=== PATIENT | male | born 1950 | race Two or more races ===

== ENCOUNTER 2023-04-23 08:24 | Inpatient (IN) | payer OTHER ==
[~2023-04-23] VITALS: Ht 157.5 cm; Wt 81.6 kg
[2023-04-23] MEDS ORDERED: RISPERDAL1 MG PO (08:52)
[2023-04-23] MEDS ORDERED: LEVOTHYROXINE25 MCG PO (08:52)
[2023-04-23] MEDS ORDERED: FLUOXETINE HCL60 MG PO (08:53)
[2023-04-23] MEDS ORDERED: LIPITOR40 M1 PO (08:53)
[2023-04-23] MEDS ORDERED: ATACAND16 MG PO (08:53)
[2023-04-23] MEDS ORDERED: RESTORIL30 M1 PO (08:54)
[2023-04-23] MEDS ORDERED: RESTORIL30 MG PO (08:54)
[2023-04-23] MEDS ORDERED: TOPROL XL25 M1 PO (08:54)
[2023-04-23] MEDS ORDERED: 0.9 % SODIUM CHLORIDE 1,000 ML IV SCH (09:15)
[2023-04-23] MEDS ORDERED: MORPHINE SULFATE 4 MG/ML VIAL IV PRN (09:15)
[2023-04-23 10:14] LABS: HEMATOCRIT 35.4 % (39.0-48.0); HEMOGLOBIN 11.5 g/dL (13-16.00); MEAN CELL VOLUME 80.8 fL (80.0-100.00); MEAN CORPUSCULAR HEMOGLOBIN 26.3 pg (27.00-32.0); MEAN CORPUSCULAR HGB CONC 32.6 g/dl (32.0-36.0); PLATELET COUNT 204 K/uL (150-450); RED BLOOD COUNT 4.38 M/uL (4.00-6.00)
[2023-04-23 10:32] LABS: INR 1.13; PARTIAL THROMBOPLASTIN TIME 26.8 SECONDS (22.0-34.0); PROTHROMBIN TIME 11.8 SECONDS (9.0-11.5)
[2023-04-23 10:44] LABS: ALBUMIN 3.7 gm/dL (3.4-5.0); BILIRUBIN TOTAL 0.51 mg/dL (0.3-1.2); CALCIUM 9.5 mg/dL (8.5-10.1); CREATININE SERUM 1.05 mg/dL (0.70-1.30); GFR 69.83; POTASSIUM 4.73 mEq/L (3.5-5.1); TOTAL PROTEIN 7.7 gm/dL (6.4-8.2)
[2023-04-23] MEDS ORDERED: FAMOTIDINE/PF 20 MG/2 ML VIAL IV SCH (12:12)
[2023-04-23] MEDS ORDERED: ENALAPRILAT DIHYDRATE 1.25 MG/ML VIAL IV PRN (12:15)
[2023-04-23] MEDS ORDERED: Cyanocobalamin/Mecobalamin 1 TAB.SL SL SCH (12:19)
[2023-04-23] MEDS ORDERED: SOD FERRIC GLUC COMPLX/SUCROSE 62.5 MG in 0.9 % SODIUM CHLORIDE 50 ML IV SCH (12:19)
[2023-04-23] MEDS ORDERED: POLYETHYLENE GLYCOL 3350 238 GM POWDER PO ONE (18:00)
[2023-04-23] MEDS ORDERED: BISACODYL 5 MG TABLET.EC PO SCH (21:00)
[2023-04-23] MEDS ORDERED: RISPERIDONE 1 MG TABLET PO SCH (21:00)
[2023-04-23] MEDS ORDERED: TEMAZEPAM 15 MG CAPSULE PO SCH (21:00)
[2023-04-24] MEDS ORDERED: LEVOTHYROXINE SODIUM 25 MCG TABLET PO SCH (06:00)
[2023-04-24 07:29] LABS: MEAN CELL VOLUME 80.1 fL (80.0-100.00); MEAN CORPUSCULAR HGB CONC 32.4 g/dl (32.0-36.0); PLATELET COUNT 198 K/uL (150-450); RED BLOOD COUNT 4.24 M/uL (4.00-6.00); RED CELL DISTRIBUTION WIDTH 21.1 % (11.5-14.5)
[2023-04-24 07:40] LABS: INR 1.14; PROTHROMBIN TIME 11.9 SECONDS (9.0-11.5)
[2023-04-24 07:48] LABS: ALBUMIN 3.6 gm/dL (3.4-5.0); BILIRUBIN TOTAL 0.7 mg/dL (0.3-1.2); CALCIUM 8.9 mg/dL (8.5-10.1); CREATININE SERUM 0.88 mg/dL (0.70-1.30); GFR 85.61; GLOBULINA 3.2 G/DL (2.4-3.5); MAGNESIUM 2.4 mg/dL (1.8-2.4); POTASSIUM 4.69 mEq/L (3.5-5.1); TOTAL PROTEIN 6.8 gm/dL (6.4-8.2); TSH 1.15 uIU/mL (0.358-3.74)
[2023-04-24] MEDS ORDERED: CANDESARTAN CILEXETIL 16 MG TABLET PO SCH (09:00)
[2023-04-24] MEDS ORDERED: METOPROLOL SUCCINATE 25 MG TAB.SR.24H PO SCH (09:00)
[2023-04-24] MEDS ORDERED: METRONIDAZOLE/SODIUM CHLORIDE 500 MG/100 ML PIGGYBACK IV ONE ×2 (12:55→14:30)
[2023-04-24] MEDS ORDERED: CEFTRIAXONE SODIUM 2,000 MG VIAL ONE (12:55)
[2023-04-24] MEDS ORDERED: CEFTRIAXONE SODIUM 2,000 MG VIAL IV ONE (14:30)
[2023-04-24] MEDS ORDERED: MORPHINE SULFATE 4 MG/ML VIAL IV PRN (16:15)
[2023-04-24] MEDS ORDERED: DEXTROSE 50 % IN WATER 0.5 G/ML DISP.SYRIN IV PRN (16:15)
[2023-04-24] MEDS ORDERED: ONDANSETRON HCL 2 MG/ML VIAL IV PRN (16:15)
[2023-04-24] MEDS ORDERED: RINGERS SOLUTION,LACTATED 1,000 ML IV SCH (16:15)
[2023-04-24] MEDS ORDERED: INSULIN LISPRO 300 UNIT/3 ML UNITS SUBCUTANEO PRN (16:15)
[2023-04-24] MEDS ORDERED: OxyCODONE HCL 5 MG TABLET (ROXICODONE) PO PRN (16:15)
[2023-04-24] MEDS ORDERED: GABAPENTIN 300 MG CAPSULE PO SCH (17:00)
[2023-04-24] MEDS ORDERED: HYOSCYAMINE SULFATE 0.125 MG TAB.SUBL SL SCH (17:00)
[2023-04-24] MEDS ORDERED: POLYETHYLENE GLYCOL 3350 17 GM BLIST.PACK PO SCH (17:00)
[2023-04-24 18:31] LABS: HEMATOCRIT 32.2 % (39.0-48.0); HEMOGLOBIN 10.5 g/dL (13-16.00); MEAN CELL VOLUME 79.5 fL (80.0-100.00); MEAN CORPUSCULAR HEMOGLOBIN 25.8 pg (27.00-32.0); MEAN CORPUSCULAR HGB CONC 32.5 g/dl (32.0-36.0); PLATELET COUNT 187 K/uL (150-450); RED BLOOD COUNT 4.05 M/uL (4.00-6.00); RED CELL DISTRIBUTION WIDTH 20.7 % (11.5-14.5)
[2023-04-24 18:40] LABS: ALBUMIN 3.2 gm/dL (3.4-5.0); CALCIUM 8.2 mg/dL (8.5-10.1); CREATININE SERUM 0.87 mg/dL (0.70-1.30); GFR 86.75; MAGNESIUM 2.1 mg/dL (1.8-2.4); PHOSPHOROUS 3.9 mg/dL (2.5-4.9); POTASSIUM 4.53 mEq/L (3.5-5.1)
[2023-04-24] MEDS ORDERED: ACETAMINOPHEN 500 MG GEL..CAP PO SCH (20:00)
[2023-04-24] MEDS ORDERED: FAMOTIDINE/PF 20 MG/2 ML VIAL IV PUSH SCH (21:00)
[2023-04-24] MEDS ORDERED: CELECOXIB 200 MG CAPSULE PO SCH (21:00)
[2023-04-25 07:04] LABS: HEMATOCRIT 28.7 % (39.0-48.0); HEMOGLOBIN 9.6 g/dL (13-16.00); MEAN CELL VOLUME 78.9 fL (80.0-100.00); MEAN CORPUSCULAR HEMOGLOBIN 26.3 pg (27.00-32.0); MEAN CORPUSCULAR HGB CONC 33.3 g/dl (32.0-36.0); PLATELET COUNT 180 K/uL (150-450); RED BLOOD COUNT 3.64 M/uL (4.00-6.00); RED CELL DISTRIBUTION WIDTH 20.3 % (11.5-14.5)
[2023-04-25 07:13] LABS: ALBUMIN 2.9 gm/dL (3.4-5.0); CALCIUM 8.1 mg/dL (8.5-10.1); CREATININE SERUM 0.8 mg/dL (0.70-1.30); GFR 95.57; MAGNESIUM 2.1 mg/dL (1.8-2.4); POTASSIUM 4.83 mEq/L (3.5-5.1)
[2023-04-25] MEDS ORDERED: ENOXAPARIN SODIUM 40 MG/0.4 ML SYRINGE SUBCUTANEO SCH ×2 (09:00→17:00)
[2023-04-26 07:07] LABS: HEMATOCRIT 25.3 % (39.0-48.0); MEAN CORPUSCULAR HGB CONC 33.4 g/dl (32.0-36.0); PLATELET COUNT 148 K/uL (150-450); RED CELL DISTRIBUTION WIDTH 20.3 % (11.5-14.5)
[2023-04-26 07:15] LABS: CALCIUM 8.2 mg/dL (8.5-10.1); CREATININE SERUM 0.81 mg/dL (0.70-1.30); GFR 94.21; MAGNESIUM 2.1 mg/dL (1.8-2.4); PHOSPHOROUS 2.9 mg/dL (2.5-4.9); POTASSIUM 4.42 mEq/L (3.5-5.1)
[2023-04-26 08:02] LABS: HEMOGLOBIN 8.4 g/dL (13-16.00); MEAN CORPUSCULAR HEMOGLOBIN 26.2 pg (27.00-32.0)
[2023-04-26] MEDS ORDERED: FUROsemide 20 MG/2 ML VIAL IV SCH (09:30)
[2023-04-26] MEDS ORDERED: TAMSULOSIN HCL 0.4 MG CAP PO SCH (15:09)
[2023-04-26] MEDS ORDERED: ENOXAPARIN SODIUM 40 MG/0.4 ML SYRINGE SUBCUTANEO SCH (17:00)
[2023-04-28 07:19] LABS: HEMOGLOBIN 10.1 g/dL (13-16.00); MEAN CORPUSCULAR HEMOGLOBIN 27.2 pg (27.00-32.0); MEAN CORPUSCULAR HGB CONC 33.6 g/dl (32.0-36.0); PLATELET COUNT 178 K/uL (150-450); RED BLOOD COUNT 3.71 M/uL (4.00-6.00); RED CELL DISTRIBUTION WIDTH 19.1 % (11.5-14.5)
[2023-04-28] MEDS ORDERED: PERCOCET 5-3251 EACH PO (13:01)
== END 2023-04-28 15:09 | disposition home or self-care (01) | DRG 330 ==
LOC: ER 08:25 → SURG 10:01 → SEC-K 10:01 → SURG 16:49 → SURH 04-27 15:00 → SURG 04-27 16:21 → SURH 04-27 16:23
PROVIDERS: General Practice; Internal Medicine Geriatric Medicine; ADMIT Surgery; ATTEND Surgery
PROC: B24BZZZ Ultrasonography of Heart with Aorta (ICD-10-PCS; 2023-04-23)
PROC: 0DBP4ZZ Excision of Rectum, Percutaneous Endoscopic Approach (ICD-10-PCS; 2023-04-24)
PROC: 07BB4ZZ Excision of Mesenteric Lymphatic, Percutaneous Endoscopic Approach (ICD-10-PCS; 2023-04-24)
PROC: 0DJD8ZZ Inspection of Lower Intestinal Tract, Via Natural or Artificial Opening Endoscopic (ICD-10-PCS; 2023-04-24)
PROC: 0DBM7ZX Excision of Descending Colon, Via Natural or Artificial Opening, Diagnostic (ICD-10-PCS; 2023-04-24)
PROC: 4A12X4Z Monitoring of Cardiac Electrical Activity, External Approach (ICD-10-PCS; 2023-04-24)
PROC: 0DTN4ZZ Resection of Sigmoid Colon, Percutaneous Endoscopic Approach (ICD-10-PCS; principal; 2023-04-24 16:30)
PROC: 30233N1 Transfusion of Nonautologous Red Blood Cells into Peripheral Vein, Percutaneous Approach (ICD-10-PCS; 2023-04-26)
DX: C18.7 Malignant neoplasm of sigmoid colon (principal); D62 Acute posthemorrhagic anemia; K56.609 Unspecified intestinal obstruction, unspecified as to partial versus complete obstruction; R59.0 Localized enlarged lymph nodes; I34.0 Nonrheumatic mitral (valve) insufficiency; I34.1 Nonrheumatic mitral (valve) prolapse; I10 Essential (primary) hypertension; E03.9 Hypothyroidism, unspecified

== ENCOUNTER 2023-05-25 06:51 | Day surgery (SDC) | payer OTHER ==
[~2023-05-25 06:51] MED LIST: ATACAND16 MG PO; FLUOXETINE HCL60 MG PO; LEVOTHYROXINE25 MCG PO; LIPITOR40 M1 PO; PERCOCET 5-3251 EACH PO; RESTORIL30 M1 PO; RESTORIL30 MG PO; RISPERDAL1 MG PO; TOPROL XL25 M1 PO
[2023-05-25] MEDS ORDERED: CEFAZOLIN SODIUM 1,000 MG VIAL ONE (08:43)
[2023-05-25] MEDS ORDERED: LIDOCAINE HCL 1%/Epi 20ML VIAL IJ ONE ×2 (10:47→11:30)
[2023-05-25] MEDS ORDERED: BUPIVACAINE HCL/PF 0.5% 30ML ML ONE (10:47)
[2023-05-25] MEDS ORDERED: HEPARIN SODIUM,PORCINE 500 UNITS/5 ML VIAL IV ONE ×2 (10:47→11:30)
[2023-05-25] MEDS ORDERED: CEFAZOLIN SODIUM 1,000 MG VIAL IV ONE (11:30)
[2023-05-25] MEDS ORDERED: BUPIVACAINE HCL/MPF 0.5% 30ML VIAL IJ ONE (11:30)
[2023-05-25] MEDS ORDERED: TRAM1TAB98 PO (12:46)
== END 2023-05-25 14:40 | disposition home or self-care (01) ==
LOC: CIR.AMB 06:51
PROVIDERS: ATTEND Surgery
DX: C18.7 Malignant neoplasm of sigmoid colon (principal)

== ENCOUNTER 2024-06-27 07:58 | Day surgery (SDC) | payer OTHER ==
[~2024-06-27 07:58] MED LIST changes: +TRAM1TAB98 PO
[2024-06-27] MEDS ORDERED: CEFAZOLIN SODIUM 1,000 MG VIAL ONE (11:06)
[2024-06-27] MEDS ORDERED: TRAM1TAB98 PO (12:14)
== END 2024-06-27 15:55 | disposition home or self-care (01) ==
LOC: CIR.AMB 07:58
PROVIDERS: ATTEND Surgery
DX: C18.7 Malignant neoplasm of sigmoid colon (principal); I10 Essential (primary) hypertension; F41.8 Other specified anxiety disorders